=== PATIENT | female | born 1995 | race Caucasian/White ===

== ENCOUNTER 2017-05-04 00:26 | Emergency (ER) | payer OTHER ==
[2017-05-04 00:29] VITALS: BP 135/93; PULSE 118; RESP 18; TEMP 99; O2SAT 94
[2017-05-04] MEDS ORDERED: ONDANSETRON DISINTEGRATING 4 MG TAB ONE (00:34)
[2017-05-04] MEDS ORDERED: ONDANSETRON DISINTEGRATING 4 MG TAB PO ONE (00:35)
--- NOTE | 2017-05-04 00:39 | EDPHY ---
H & P Smoking Status: Never smoked Time Seen by Provider: 05/04/17 00:32 HPI/ROS: CHIEF COMPLAINT: Right hand laceration HISTORY OF PRESENT ILLNESS: 21-year-old [id number] female with up-to- date tetanus states that shortly prior to arrival the she was angry and performed a chopping motion against a mirror, subsequently the mirror broke. She sustained laceration to the right hand ulnar aspect. No paresthesia distally. No sensory or motor deficit. No foreign body sensation. Positive alcohol use this evening PHYSICAL EXAM (Prior to examination, patient consented to physical exam, hands were washed and my usual and customary physical exam procedures followed) 1) GENERAL: Well-developed, well-nourished, alert and oriented. Appears to be in no acute distress. 2) HEAD: Normocephalic 3) HEENT: sclera anicteric 4) LUNGS: Breathing comfortably. 5) SKIN: right hand ulnar aspect 3 cm well-demarcated laceration , a small fascial defect is appreciated on exam 6) MUSCULOSKELETAL: [flexion, extension intact with no deficits. 7) NEUROLOGIC: Full sensation and two-point discrimination intact. (Valery Wu) Constitutional: Initial Vital Signs Temperature (C) 37.2 C 05/04/17 00:28 Heart Rate 118 H 05/04/17 00:28 Respiratory Rate 18 05/04/17 00:28 Blood Pressure 135/93 H 05/04/17 00:28 O2 Sat (%) 94 05/04/17 00:28 O2 Delivery Mode Room Air Allergies/Adverse Reactions: No Known Allergies Allergy (Unverified 05/04/17 00:29) Home Medications: Medication Instructions Recorded Contol 05/04/17 [facility]/Departure - [facility] Procedures: Procedure: Laceration repair. I explained the indications, risks and benefits for both laceration repair and anesthetic administration. Verbal consent was obtained from the patient . The laceration on the right hand was anesthetized using 0.5% bupivicaine with epinephrine . After anesthetic administered the patient was observed for a period of time and had no apparent adverse effects. The wound was cleaned, prepped, draped in normal sterile fashion and explored to its base. No foreign body seen, no foreign bodies palpated. A fascial defect is identified closed with 4 simple interrupted 5 0 Vicryl sutures. The skin is closed with 9 simple interrupted 5 O Prolene sutures. The wound repair was complex. The procedure was performed by myself. Patient has been informed that scarring will occur, although efforts have been made to minimize this. Procedure: Splint A Velcro volar splint was applied by ER shale processing technician in order to reduce stress on the laceration site. After application of the splint I returned and re- examined the patient. The splint was adequately immobilizing the joint and distal to the splint the patient's circulation and sensation were intact. Patient shows no signs of compartment syndrome. Was given orthopedic precautions. (Valery Wu) Medications Given: Discontinued Medications Ondansetron HCl (Zofran Odt) 4 mg PO EDNOW ONE Stop: 05/04/17 00:36 Last Admin: 05/04/17 00:37 Dose: 4 mg ED Course/Re-evaluation: Care of patient under supervision of secondary supervising physician Dr Duron . (Valery Wu) PHYSICIAN DOCUMENTATION: The patient was evaluated and managed by the [employer] [employer]. My co- signature indicates that I have reviewed this chart and I agree with the findings and plan of care as documented. I am the secondary supervising physician. (Patricia Duron) - Depart Disposition: Home, Routine, Self-Care Clinical Impression: Laceration of right hand Qualifiers: Encounter type: initial encounter Foreign body presence: without foreign body Qualified Code(s): S61.411A - Laceration without foreign body of right hand, initial encounter Condition: Good Instructions: Laceration (ED) Additional Instructions: Return to the ER if you develop redness, swelling, discharge, warmth to the wound, red streaks going up your arm , or any other symptoms that concern you. Referrals: Return, to the ER in 10 days for suture removal [Other] - As per Instructions Isai oBnd MD [Medical Doctor] - 2-3 days, call for appt. (Dr. Bond is a hand surgeon)
== END 2017-05-04 01:32 | disposition home or self-care (01) ==
PROC: 0HQFXZZ Repair Right Hand Skin, External Approach (ICD-10-PCS; principal; 2017-05-04)
DX: S61.411A Laceration without foreign body of right hand, initial encounter (principal); W26.8XXA Contact with other sharp object(s), not elsewhere classified, initial encounter
CPT/HCPCS: L3807